=== PATIENT | female | born 1950 | race Caucasian/White ===

== ENCOUNTER 2017-03-21 19:26 | Inpatient (IN) | payer OTHER ==
[~2017-03-21] VITALS: Ht 172.7 cm; Wt 79.4 kg
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
[2017-03-21 20:59] LABS: ABSOLUTE BASOPHIL COUNT 0.1 /CUMM (0.0-0.2); ABSOLUTE EOSINOPHIL COUNT 0.1 /CUMM (0.0-0.7); ABSOLUTE GRANULOCYTE CT 6.7 /CUMM (1.4-6.5); ABSOLUTE LYMPH COUNT 1.5 /CUMM (1.2-3.4); ABSOLUTE MONOCYTE COUNT 0.5 /CUMM (0.10-0.60); BASOPHIL % 0.6 % (0.0-2.0); EOSINOPHIL % 1.2 % (0-5); GRANULOCYTE % 75.8 % (42.2-75.2); HEMATOCRIT 44.6 % (37-47); MEAN CORPUSCULAR HGB 33.6 PG (27.0-31.0); MEAN CORPUSCULAR HGB CONC 34.2 G/DL (33.0-37.0); MEAN CORPUSCULAR VOLUME 98.3 FL (81.0-99.0); MEAN PLATELET VOLUME 9.5 FL (7.4-10.4); PLATELET COUNT 177 /CUMM (130-400); RBC DISTRIBUTION WIDTH 13.5 % (11.5-14.5); RED BLOOD CELL CT 4.53 /CUMM (4.20-5.40); WHITE BLOOD CELL COUNT 8.9 /CUMM (4.8-10.8)
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
--- NOTE | 2017-03-21 21:01 | RADIOLOGY REPORT ---
EXAMINATION: XR HUMERUS, RIGHT CLINICAL INFORMATION: Fall. Humerus pain and swelling. Humerus fracture COMPARISON: Baseball Scout radiograph from the earlier CT of the head and cervical spine TECHNIQUE: AP and lateral views of the right humerus. FINDINGS: There is a comminuted multi part right proximal humeral fracture. The proximal extent extends to the humeral neck. There is one shaft's width anterior displacement and approximately 45 degree apex medial angulation. The right humeral head remains normally positioned with respect to the glenoid. The right elbow is grossly intact. IMPRESSION: Comminuted right proximal humeral shaft fracture with one shaft's width anterior displacement and approximately 45 degree apex medial angulation.
[2017-03-21 21:11] LABS: PT 11.8 SEC (9.4-12.5); PTT 30 SEC (25-37)
--- NOTE | 2017-03-21 22:20 | CT SCAN REPORT ---
EXAMINATION: CT UPPER EXTREMITY WITHOUT CONTRAST, right upper arm CLINICAL INFORMATION: Fracture of the right humerus. COMPARISON: Plain film exam right humerus today TECHNIQUE: Axial images obtained through the right humerus. Coronal and sagittal reformatted images are performed at the CT scanner. DLP: 982.33 mGy-cm FINDINGS: There is an oblique fracture of the proximal shaft of the humerus. Fracture is angulated with displacement medially. The fracture extends proximally into the surgical neck of the humerus and involves the base of the greater tuberosity with comminution. No bone destruction. No evidence for pathologic fracture. Humeral head remains normally articulated with the glenoid. No fracture of the scapula. There is small air droplets in the soft tissues adjacent to the humeral fracture laterally. It does not appear to the interruption of the skin but some edema does extend to the subcutaneous tissue at the superior lateral margin. Correlate with clinical findings. IMPRESSION: Comminuted angulated and displaced fracture the proximal humerus. Fracture involves the proximal diaphyseal shaft that does extend into the base of the greater tuberosity through the surgical neck of the humerus.
--- NOTE | 2017-03-21 23:00 | History & Physical Pre-Op ---
Karey Norwood 03/21/17 8499: General Information and HPI MD Statement: I have seen and personally examined ANTHONY REEDER and documented this H&P. The patient is a 67 year old F who presented with a patient stated chief complaint of R shoulder pain after a fall in her kitchen. Source of Information: patient Exam Limitations: intoxication History of Present Illness: Pt is a 67 yo F with no known medical problems who presented to the [place] ED with complaints of right shoulder pain after a fall in her kitchen. She states that she was drinking at home and fell onto her refrigerator. She noted an immediate deformity with significant assoicated pain. She recalls the entire event and denies loss of consciousness. Her was home with her at the time of brought her to the ED for evaluation. Upon arrival, and obvious deformity of the R shoulder/humeral head was noted and subsequent workup revealed an open, comminuted proximal humerus fracture with significant angulation. At this time, she c/o pain with movement, and numbness of the R distal arm/hand. +headache. Otherwise denies dizziness, chest pain, shortness of breath, abdominal pain, nausea, vomiting, pain in other extremities. Allergies/Medications Allergies: Coded Allergies: No Known Allergies (03/21/17) Past History Medical History Musculoskeletal: hx ankle fracture Surgical History Pertinent Surgical History: hx ankle ORIF Past Family/Social History Psychosocial History Where Do You Live? Home Who Do You Live With? 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 Pt admits to drinking about 2 glasses of wine per night with an occassional martini. On some occassions, she has more than 4 drinks. She denies history of withdrawal in the past. Negative for dizziness, chest pain, shortness of breath, abdominal pain, nausea, vomiting, pain and other extremities. Exam & Diagnostic Data Last 24 Hrs of Vital Signs/I&O Vital Signs Date Time Temp Pulse Resp B/P B/P Pulse O2 O2 Flow FiO2 Mean Ox Delivery Rate 03/21 1930 98.1 82 18 169/97 95 Room Air Intake & Output 03/22 0800 03/22 0000 03/21 1600 Intake Total Output Total Balance Patient 155 lb Weight Weight Reported by Patient Measurement Method Physical Exam: Gen.: Patient is awake and alert. She appears occasionally agitated, likely somewhat intoxicated, as indicated by rigid, abrupt movements. She is oriented to person, place, time, and situation. She is cooperative and verbalizes well. Cardiac: Regular Pulmonary: Lungs are clear bilaterally. Extremities: There is significant anterior angulation noted in the area of the right proximal humerus, with surrounding ecchymosis and swelling. Posterior splint and Jamison wrap are in place, limiting exam, however patient's hand is warm. She has numbness of her thumb and the tips of her fingers, with impaired wrist extension noted. Assessment/Plan Assessment/Plan: Patient is a 67-year-old female with a history of daily alcohol use, who sustained an open proximal humerus fracture. Plan: -Admit to Dr. Peralta service for surgical intervention, planned for tomorrow around noon. -Nothing by mouth after midnight with IV fluids. -Pain control with IV acetaminophen every 6 hours as needed. Patient is adamantly refusing narcotics. -Q4h neuro checks. -Medical consult requested for clearance. -CIWA protocol with Ativan coverage for signs of alcohol withdrawal. -F/u EKG and add on Hgb A1C as per medicince recommendations. As Ranked By This Provider Problem List: 1. Humeral shaft fracture Fabian MEI,Riddhi 03/22/17 1010: General Information and HPI Allergies/Medications Home Med list No Known Home Medications Attending MD Review Statement Attending Statement Attending MD Statement: examined this patient, discuss w/resident/PA/COMMERCIAL ART INSTRUCTOR, agreed w/resident/PA/COMMERCIAL ART INSTRUCTOR, discussed with family, reviewed images Attending Assessment/Plan: Patient evaluated in the ED; open right segmental proximal humerus fracture. Small medial puncture wound, likely inside out, no active bleeding at this time. Pain is controlled. On exam, diffuse sweeling and ecchymosis of right upper arm. Denies shoulder pain. Unable to extend thumb or wrist. Intact flexion of long, ring, and small fingers but difficulty with flexion of index finger. Intact flexion of thumb. No pain with passive motion of fingers Decrease sensation to light touch over dorsal hand and fingers; intact over ulnar hand and palm. Palpable radial pulse. A/P: 67yo RHD female with right open right segmental proximal humerus fracture. Plan for I&D and ORIF of fracture as soon as possible; waiting on instrumentation at this time. Discussed radial nerve injury; will explore radial nerve at time of surgery. Stretch or contusion may occur in humeral fracture, and discussed with patient that nerve may take several months to heal. NPO after midnight, IV fluids Pain control Continue IV abx for open fracture To OR in AM for I&D and stabilization of fracture
--- NOTE | 2017-03-22 00:46 | PN- Orthopedic ---
Surgical Brief Attending Note Brief Attending Note: Brief Note - please see full H&P by Juana Wells PA-C. Mrs. Cedeño was seen and examined in the Emergency Dept. Singh at bedside. She had a mechanical fall at home, hitting her right shoulder against the refrigerator. Consumption of EtOH this evening. Imaging shows a segmental proximal humerus fracture; per ED providers, concern for open fracture. On evaluation, patient is sitting comfortably in bed. Right arm in sling and resting on a pillow. Small wound over medial upper arm, no actively bleeding but blood-soaked gauze surrounding arm. Given xray findings and location of small wound, this is likely an inside-out open fracture and will be treated as such. No gross contamination. She received ancef in the ED and abx treatment will continue. Patient also noted to have a radial nerve palsy. Unable to extend her wrist or thumb; decreased sensation over the dorsal hand. Intact sensation over volar hand, forearm, and upper arm. 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 Strong palpable radial pulse. Plan for I&D of open wound and stabilization of fracture as soon as possible. Given radial nerve palsy and open fracture, will plan for ORIF of segmental humerus fracture with exploration of the radial nerve. Appreciate Medicine consultation for optimization prior to OR. NPO after midnight Pain control. NWB RUE in sling and splint. To OR tomorrow for I&D and ORIF of right Grade I open segemental proximal humerus fracture.
--- NOTE | 2017-03-22 03:36 | Cons- Medical ---
Jen Flores 03/22/17 0320: General Information and HPI Consulting Request Date of Consult: 03/22/17 Requested By: Riddhi Peralta MD Reason for Consult: Medical management/clearance before the surgery Source of Information: patient Exam Limitations: no limitations History of Present Illness: Patient is a 67-year-old female with no significant past medical history except for alcohol dependence presented to the ED through ambulance after sustaining a mechanical fall . Patient mentioned that she lost her balance and fellthe floor in the kitchen. Denied any lightheadedness and dizziness loss of consciousness before and after the fall. The entire event was witnessed by her . After the fall she noticed immediate deformity with significant associated pain and was brought in to the ER for further assessment. Upon arrival in the ED patient was noted to have obvious right shoulder/vertigo had developed deformity, x-ray of the right upper extremity revealed comminuted proximal humeral fracture with significant angulation. Patient denied any chest discomfort or breathing palpitations at the time of evaluation ,denied any recent hospitalization fever or infections denies any nausea vomiting abdominal discomfort and urinary bowel habit complaints. As mentioned above, patient drinks on a daily basis at least 2 glasses of red wine, once in a while drink more than 4 glasses of wine. Denied any history of alcohol intoxication/withdrawal denied any alcohol related seizures in the past. Does no smoke does not use any illicit drug . Allergies/Medications Allergies: Coded Allergies: No Known Allergies (03/21/17) Review of Systems Review of Systems Constitutional: Denies: diaphoresis, fever, malaise. EENTM: Denies: double vision, eye pain, eye drainage. Cardiovascular: Denies: edema, orthopena, palpitations. Respiratory: Denies: cough, hemoptysis, short of breath. GI: Denies: bloating, constipation, distention. Genitourinary: Denies: dysuria, frequency. Musculoskeletal: Denies: gout, joint pain, joint swelling. Skin: Denies: change in skin color, change in hair/nails. Neurological/Psychological: Denies: ataxia. Past History Travel History Traveled to [place] past 21 day No Medical History Musculoskeletal: hx ankle fracture Surgical History Surgical History: hx ankle ORIF Psychosocial History Where Do You Live? Home Who Do You Live With? 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 Respiratory: normal breath sounds, chest non-tender Last 24 Hrs of Labs/Jacob: Laboratory Tests 03/21/178: Anion Gap 13, Estimated GFR > 60, BUN/Creatinine Ratio 21.7, Glucose 164 H, Hemoglobin A1c Pending, Calcium 9.1, Total Bilirubin 0.4, AST 51 H, ALT 71 H, Alkaline Phosphatase 72, Total Protein 6.7, Albumin 4.1, Globulin 2.6, Albumin/ Globulin Ratio 1.6, Serum Alcohol 187.0 03/21/172044: CBC w Diff NO MAN DIFF REQ, RBC 4.53, MCV 98.3, MCH 33.6 H, RDW 13.5, MPV 9.5, Gran % 75.8 H, Lymphocytes % 16.5 L, Monocytes % 5.9, Eosinophils % 1.2, Basophils % 0.6, Absolute Granulocytes 6.7 H, Absolute Lymphocytes 1.5, Absolute Monocytes 0.5, Absolute Eosinophils 0.1, Absolute Basophils 0.1, PUBS MCHC 34.2 03/21/171999: PT 11.8, INR 1.13, APTT 30 Assessment/Plan Assessment/Plan Patient is a 67-year-old female with no significant past medical history except for alcohol dependence presented to the ED through ambulance after sustaining a mechanical fall. Upon arrival in the ED patient was noted to have obvious right shoulder/vertigo had developed deformity, x-ray of the right upper extremity revealed comminuted proximal humeral fracture with significant angulation. Pertinent labs no evidence of leukocytosis H&H stable, transaminitis AST 50 once ALT 71 normal coags, U tox positive for alcohol 187. X-ray of the right upper extremity showed : Comminuted right proximal humeral shaft fracture with one shaft's width anterior displacement and approximately 45 degree apex medial angulation. We have been consulted for co- medical management or with problems. Comminuted right proximal humeral shaft fracture with significan angulation status post mechanical fall Alcohol dependence Transaminitis(likely alcohol related) Plan: Comminuted right proximal humeral shaft fracture with significan angulation status post mechanical fall * Admit the patient to the [facility] floor * Patient has been evaluated by surgical team. * Continue management as per surgery. * Bowel regimen. * Neurochecks. * RCRI index is v low(0.9% risk of any cardiac event), will do preop EKG and chest x-ray before the surgery, if patient remains stable without any significant EKG and chest x-ray findings, patient is medically cleared for surgery. * Due to significant alcohol dependence, maintain her on CIWA protocol with as needed Ativan to prevent any withdrawal/seizures. * Check hemoglobin A1c(to rule out any underlying diabetes mellitus) Alcohol dependence * Due to significant alcohol dependence, maintain her on CIWA protocol with as needed Ativan to prevent any withdrawal/seizures. Transaminitis(likely alcohol related) * Trended LFTs Consult Acknowledgment - Thank you for your consult request. DelaneyHampriti 03/22/17 0642: Assessment/Plan Consult Acknowledgment - Thank you for your consult request. Attending MD Review Statement Attending Statement Attending MD Statement: examined this patient, discuss w/resident/PA/CREDIT COMPLIANCE OFFICER, agreed w/resident/PA/CREDIT COMPLIANCE OFFICER, reviewed EMR data (avail), reviewed images, amended to note Attending Assessment/Plan: CC: Medical consult for surgical clearance PMH: None Patient came to ER after a fall in her kitchen, she was drinking something at home and fell into a refrigerator, immediately a deformity was noted with severe pain in right upper extremity, she was rushed to ER. Other than the pain in right arm ration denies any other complaints. She did not loose consciousness, no head strike, no seizure-like activity. Currently denies any chest pain, palpitations. Patient is very active, asymptomatic for chest pain or dyspnea on exertion with one-mile walk. No significant coronary artery disease, no significant history of strokes. Vitals, complete physical examination unremarkable except right upper extremity is in the sling and slab and radial nerve palsy, decreased sensation over the dorsum of the hand. CBC, BMP, unremarkable, mild transaminitis 51/, alcohol 187. No old or new ECG changes, ? Q wave only in lead 3. Given her no significant past medical history, not on medication she has low RCRI risk for any major cardiac mortality 0.4%. Low risk for surgery. Appreciate consult. Watch for alcohol withdrawal, repeat LFTs in a.m.
[2017-03-22 07:45] VITALS: BP 180/100
--- NOTE | 2017-03-22 10:24 | PN- Orthopedic ---
Surgical Brief Attending Note Brief Attending Note: Patient seen and examined this morning. Remains in Emergency Dept. Uncomfortable and sore, requests removal of posterior splint due to discomfort. Now has tingling in the dorsal fingers and some motion fo the thumb. Exam: Right Upper Extremity No active bleeding from small medial upper arm wound Diffuse ecchymosis and swelling of right upper arm Intact thumb, long, ring, and small finger flexion; decreased flexion of index finger Unable to fully extend thumb but improved from yesterday. Able to slightly extend fingers, improved from yesterday. Bounding right radial pulse, hand warm and well-perfused. A/P: 67yo RHD female with right segmental proximal humerus fracture and radial nerve injury; small open wound over medial upper arm. Plan for I&D and ORIF of fracture today. Appreciate Medicine consult and their recommendations. CAT KHALIL NPO Pain control IV fluids To OR today
[2017-03-22 10:30] VITALS: BP 210/120
[2017-03-22 11:30] VITALS: BP 220/110
[2017-03-22 13:30] VITALS: BP 180/110
--- NOTE | 2017-03-22 18:36 | PN- Att Addend ---
Attending Addendum Attending Brief Note S: The patient was seen pre-operatively again for elevated BP readings (max 220/ 110-210/120). She has no h/o HTN, however has not seen an MD in many years. She does endorse pain due to her fracture, however declines narcotics. O: VS: Vital Signs Date Time Temp Pulse Resp B/P B/P Pulse O2 O2 Flow FiO2 Mean Ox Delivery Rate 03/22 1425 160/110 03/22 1406 99.1 84 20 170/110 03/22 1355 84 20 170/110 98 Room Air 03/22 1330 99.1 74 20 180/110 03/22 1327 99.1 74 20 180/110 97 Room Air 03/22 1244 74 20 200/110 98 Room Air 03/22 1227 200/110 03/22 1205 98.1 91 20 220/110 03/22 1130 98.1 91 20 220/110 03/22 1130 98.1 91 20 220/110 98 Room Air 03/22 1030 98.0 96 20 210/120 03/22 1030 98.0 96 20 210/120 97 Room Air 03/22 0745 98.7 97 20 180/100 03/22 0745 98.7 97 20 180/100 97 Room Air 03/22 0129 98.4 81 18 148/73 98 Room Air 03/21 1930 98.1 82 18 169/97 95 Room Air Intake & Output 03/22 1600 03/22 0800 03/22 0000 Intake Total Output Total Balance Patient 155 lb Weight Weight Reported by Patient Measurement Method Current Medications Sig/Bert Start time Last Medication Dose Route Stop Time Status Admin Acetaminophen 0 .STK-MED ONE 03/22 121 DC IV Acetaminophen 1,000 MG Q6P PRN 03/22 06 AC 03/22 N/A 1 UNIT IV 1210 Acetaminophen 0 .STK-MED ONE 03/22 0500 DC IV Acetaminophen 0 .STK-MED ONE 03/21 2255 DC IV Acetaminophen 1,000 MG ONCE ONE 03/21 194 DC 03/21 N/A 1 UNIT IV 03/21 1958 2315 Cefazolin Sodium 0 .STK-MED ONE 03/22 1210 DC .ROUTE Cefazolin Sodium 1,000 MG Q8H 03/22 0500 AC 03/22 IV 1210 Cefazolin Sodium 0 .STK-MED ONE 03/22 0500 DC .ROUTE Cefazolin Sodium 0 .STK-MED ONE 03/21 2304 DC .ROUTE Cefazolin Sodium 1,000 MG ONCE ONE 03/21 2100 DC 03/21 IV 03/21 210 2315 Heparin Sodium 0 .STK-MED ONE 03/22 1412 DC (Porcine) .ROUTE Heparin Sodium 5,000 UNIT Q8 03/22 0600 AC 03/22 (Porcine) SC 1407 Hydralazine HCl 0 .STK-MED ONE 03/22 1405 DC .ROUTE Hydralazine HCl 10 MG ONCE ONE 03/22 1400 DC 03/22 IV 03/22 1401 1406 Labetalol HCl 0 .STK-MED ONE 03/22 1204 DC IV Labetalol HCl 10 MG ONCE ONE 03/22 1200 DC 03/22 IV 03/22 1201 1205 Lorazepam 0 .STK-MED ONE 03/22 1250 DC .ROUTE Lorazepam 0.5 MG ONCE ONE 03/22 1200 DC 03/22 IV 03/22 1201 1248 Lorazepam 0 Q1P PRN 03/22 0045 AC IV Morphine Sulfate 0 .STK-MED ONE 03/21 2254 DC .ROUTE Morphine Sulfate 4 MG ONCE ONE 03/21 2200 DC IV 03/21 2201 Sodium Chloride 1,000 ML Q8H 03/22 0100 AC 03/22 IV 1210 Tetanus/Diphtheria 0 .STK-MED ONE 03/21 2304 DC Toxoids Adsorbed IM Tetanus/Diphtheria 0.5 ML ONCE ONE 03/21 2100 DC 03/21 Toxoids Adsorbed IM 03/21 2100 2315 Chest: clear Cor: RRR nl S1, S2 w/o murm Abd: BS+, soft, NT Ext: LE w/o edema, pulses 2+, RUE fx as documented Labs: EKG- neg Laboratory Tests 03/22/17 1351: Total Bilirubin 0.9, Direct Bilirubin 0.3, AST 44 H, ALT 70 H, Alkaline Phosphatase 61, Total Protein 6.6, Albumin 3.9 03/21/17 2318: Anion Gap 13, Estimated GFR > 60, BUN/Creatinine Ratio 21.7, Glucose 164 H, Hemoglobin A1c Pending, Calcium 9.1, Total Bilirubin 0.4, AST 51 H, ALT 71 H, Alkaline Phosphatase 72, Total Protein 6.7, Albumin 4.1, Globulin 2.6, Albumin/ Globulin Ratio 1.6, Serum Alcohol 187.0 03/21/172044: CBC w Diff NO MAN DIFF REQ, RBC 4.53, MCV 98.3, MCH 33.6 H, RDW 13.5, MPV 9.5, Gran % 75.8 H, Lymphocytes % 16.5 L, Monocytes % 5.9, Eosinophils % 1.2, Basophils % 0.6, Absolute Granulocytes 6.7 H, Absolute Lymphocytes 1.5, Absolute Monocytes 0.5, Absolute Eosinophils 0.1, Absolute Basophils 0.1, PUBS MCHC 34.2 03/21/171999: PT 11.8, INR 1.13, APTT 30 Impression/Plan: #HTN- BP elevation is most likely multifactorial (?may have underlying HTN, NS hydration, pain, anxiety, ?withdrawal from EtOH). BP decreased post some Ativan, Labetalol, and Hydralazine. Plan: OK for urgent surgery as noted previously. Will follow BP closely post operatively and decide upon further medication. Once taking po consider Amlodipine. #Alcohol Dependence- ? some degree of withdrawal. No h/o withdrawal in past as per patient and family. Had elevated blood alcohol level on presentation. Plan: Will continue CIWA and use Ativan/MVI/thiamine/folate, etc. #Comminuted Fx Right Humeral Shaft/Nerve Compression- needs urgent intervention. Plan: As per orthopedics- to OR.
--- NOTE | 2017-03-22 20:11 | Operative Report ---
Operative/Inv Procedure Report Surgery Date: 03/22/17 Name of Procedure: Right segmental humerus ORIF I&D of right upper arm open fracture Exploration of right radial nerve Pre-Operative Diagnosis: Grade I open right segmental humerus fracture Radial nerve palsy Post-Operative Diagnosis: Grade I open right segmental humerus fracture Radial nerve palsy Estimated Blood Loss: 300mL Surgeon/Prepared Foods Supervisor: Fabian MEI,Riddhi Cazares MD, SADIA Anesthesia: general endotracheal tube Implants: Styker Proximal Lateral Humerus Plate - 10 hole (176mm) 3.5mm cortical screws 4.0mm locking screws Drains: None Specimens: None Microbiology: None Tourniquet: N/A Complications: None Condition: Stable Operative/Procedure Note Note: INDICATION FOR PROCEDURE: Samantha Cedeño is 67 year-old female who presented to the Emergency Department at [facility] with right arm pain. She had consumed alcohol earlier that evening and stumbled in her kitchen, striking her right shoulder against her refrigerator. X-rays showed a segmental proximal humerus frature, and she had a small medial wound consistent with open fracture. On examination, she was also found to have a radial nerve palsy. She was given cefazolin for the open fracture in the Emergency Department. She was evaluated by the Medicine service for pre-operative medical optimization, then taken to the operating room for irrigation and debridement of the open wound, stabilization of her fracture, and exploration of the radial nerve. OPERATIVE REPORT: Mrs. Cedeño was brought to the OR on 03/22/17. She was met in the pre-operative area, where her consent was reviewed and her operative extremity was marked. She was taken into the operating room and placed supine on the OR table. A time -out was performed in which the patient, the operative extremity, and the planned procedure were verified. SCDs were applied to bilateral lower extremities. The patient was induced under general anesthesia and caitlyn-operative cefazolin was administered. She was then placed in a 30 degree modified beach chair position; care was taken to pad all bony prominences and support the head in a neutral position. A bump was placed under the scapula. The right arm was then cleaned with alcohol; some bleeding was noted from two small wounds in the medial upper arm. Fluoroscopy was used to verify the position of the fractures and x-rays accessbility prior to prepping and draping of the arm. Following a surgical pause, an incision was made for the deltopectoral approach and extended distally over the anterolateral upper arm. Proximally, the deltoid and pectorialis major interval was opened, and the cephalic vein mobilized laterally. The conjoint tendon and long head of the biceps tendon were identified, as was the fracture of the surgical neck of the humerus. The pectoralis major tendon insertion was left intact. Laterally, a large spike of bone of the segmental fracture was noted with the deltoid insertion intact. The dissection was carried distally, where signficiant soft tissue trauma was noted over the biceps and brachioradialis interval. The biceps muscle belly was intact and retracted medial. The anterior brachioradialis muscle was damaged, and the fascia overlying the muscles was also torn and damaged, resulting in a large anterior defect. The diaphyseal spiral fracture was exposed; the open fracture appeared to be due to the large segmental spike and/or the distal medial spike of bone. An incision was made to extend the two small puncture wounds of the open fracture. A rent was appreciated in the deeper soft tissues, which extended laterally. The wound was carefully explored with no evidence of gross contamination. A blunt snap was placed in the open wound to maintain the space. A total of 6L of normal saline with bacitracin was irrigated throughout the fracture sites. The fluid was periodically stopped and manual debridement of the sharp ends performed. Fluid was allowed to run though the open wound from inside out. Following irrigation and debridement of the fracture site, a 10-hole proximal humerus plate was selected. The surgical neck fracture was reduced and the plate pinned to the lateral humeral head. The plate sat over the anterolateral humerusand was passed under the deltoid insertion. There were comminuted fragments of bony involving the posterior humerus; these large fragments prevented a perfect reduction without extensive dissection. The segmental piece was pinned to the plate and fluoroscopy used to verify the reduction and position of the plate. The distal aspect of the segmental fracture was then reduced and the plate clamped to the distal humeral shaft. Once again fluoro was used to verify the reduction. After minor adjustments were made, locking screws were placed in the humeral head and cortical screws placed in the shaft to bridge the fracture. The K-wires and clamps were removed and fluoro used to again verify the reduction and bridging. The segmental fragment was not perfectly keyed in, but the overall length and alignment was appropriate. Additional fixation was obtained proximally and distally. The radial nerve was carefully dissected over the lateral aspect of the humerus, where it ran from posterior to anterior. The nerve was in good condition distal to the segmental fracture and did not cross the plate. It's proximal to distal course was verified and was not trapped in tissue near the plate. We did not dissect the nerve posterior to the humerus due to morbidity and access from the anterolateral approach, and therefore were unable to verify the integrity of the nerve proximally. At the conclusion of the procedure, final fluoroscopic images were obtained to verify the fracture reduction and the position of the plate. The wound was then copiously irrigated with normal saline. Hemostasis was obtained and no additional drainage was required. The incision was closed in layers using 0 vicry and 2-0 vicryl, followed by interrupated Nylon for skin. The medial wound was closed with 0 vicryl and 3-0 nylon. The incisions were dressed with xeroform, gauze, ABD pads, and secured with webril. The proximal dressings were secured with foam tape and the arm was wrapped with an FRANCESCA bandage from axilla to hand. She was placed in a simple sling. The patient was then extubated and taken from the OR to the recovery room in stable condition.
--- NOTE | 2017-03-22 22:04 | PN- Orthopedic ---
Subjective Subjective: Post op check Awake, alert No complaints at this time Denies any pain - state she has a high pain tolerance Denies nausea, tolerating liquids Objective Vital Signs and I&Os Vital Signs Date Time Temp Pulse Resp B/P B/P Pulse O2 O2 Flow FiO2 Mean Ox Delivery Rate 03/22 2037 Nasal 1.5L Cannula 03/22 1425 160/110 03/22 1406 99.1 84 20 170/110 03/22 1355 84 20 170/110 98 Room Air 03/22 1330 99.1 74 20 180/110 03/22 1327 99.1 74 20 180/110 97 Room Air 03/22 1244 74 20 200/110 98 Room Air 03/22 1227 200/110 03/22 1205 98.1 91 20 220/110 03/22 1130 98.1 91 20 220/110 03/22 1130 98.1 91 20 220/110 98 Room Air 03/22 1030 98.0 96 20 210/120 03/22 1030 98.0 96 20 210/120 97 Room Air 03/22 0745 98.7 97 20 180/100 03/22 0745 98.7 97 20 180/100 97 Room Air 03/22 0129 98.4 81 18 148/73 98 Room Air Intake & Output 03/22 1600 03/22 0800 03/22 0000 03/21 1600 03/21 0800 03/21 0000 Intake Total Output Total Balance Patient 155 lb Weight Weight Reported by Patient Measurement Method Physical Exam: VSS General: alert and oriented times three Chest: clear anteriorly bilaterally, RRR Abd: soft, good bs Ext RUE wrapped in FRANCESCA and dressing at the prox humerus - dressings are all dry Fingers are exposed, warm, good cap refill, normosensate flexion/extension of fingers 3/5 Assessment/Plan Assessment/Plan 67yo female with right segmental proximal humerus fracture and radial nerve injury s/p Right segmental humerus ORIF I&D of right upper arm open fracture Exploration of right radial nerve Pain mgmt post op with IV tylenol scheduled for 24hrs and PROCEDURES TECH dilaudid dvt ppx with 325mg asa po bid and ALPS RUE will be non weight bearing and kept in a sling - splint will be brought by Dr Peralta tomorrow Monitor bp as it was high pre-op Core Measures Venous Thromboembolism VTE Risk Factors Surgery No Mechanical VTE Prophylaxis d/t N/A MechProphylax Ordered No VTE Pharm Prophylaxis d/t NA PharmProphylax ordered
[2017-03-22 22:10] VITALS: BP 140/84
[2017-03-22 23:00] VITALS: BP 140/84
--- NOTE | 2017-03-22 23:32 | RADIOLOGY REPORT ---
EXAMINATION: XR HUMERUS, RIGHT CLINICAL INFORMATION: Right humerus ORIF COMPARISON: 03/21/2017 TECHNIQUE: 11 intraoperative fluoroscopic images of the right humerus. 2 views. Total fluoroscopic time 50.3 seconds. FINDINGS: The comminuted proximal humeral fracture is seen on the initial image. There is plate and screw fixation hardware placed across the comminuted fracture with near-anatomic alignment of the fracture fragments. The humeral head articulates appropriately with the glenoid. IMPRESSION: Fluoroscopic guidance internal fixation of the comminuted proximal right humeral fracture with near-anatomic alignment.
[2017-03-23] VITALS (12 sets, daily range): BP systolic 128–142; BP diastolic 70–80
--- NOTE | 2017-03-23 07:19 | PN- Student ---
Christ Marshall 03/23/17 0709: Subjective Subjective: Samantha is a 67yo female day 1 post op right humerus reduction/fracture repair s/p open segemental humerus fracture. She states her pain is a 5/10 dull throbbing pain. She states she has had mild nausea and a dry cough since the procedure but has no other complaints. Denies H/A, vision changes, SOB, chest pain, abd pain, N/V/D or syncope. Because of hx of alcohol misuse patient was assessed for alcohol withdrawal. She states she feels 'shaky' but denies any visual/auditory/sensory hallucinations at this time. Objective Objective: GENERAL: PT lying comfortably in bed in no acute distress. PT has pleasant/ slightly anxious affect. A+Ox4. RESP: Good respiratory effort, CTAB. CARDIO: RRR, no M/R/G, S1 and S2 audible throughout ABD: Soft, nontender, nondistended, tympanic upon percussion. Normoactive bowel sounds audible in all 4 quadrants MUSC: Right arm is in jabier bandage with dressing underneath starting at the right shoulder extending to the right hand. Sling is in place, however patients arm is 80% extended for comfort. 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 Patient has limited movement in the right wrist/metacarpals and is unable to flex right wrist completely. cap refill <2 seconds. Hand is warm, dry and shows no signs of swelling. NEURO: Sensation intact throughout bilaterally. Assessment/Plan Assessment: Samantha is a 67 yo female post op day 1 recovering very well from right humeral reduction 2/2 open fracture. She has a high pain tolerance and states she feels like her ROM and strength of her right hand has been improving since her injury. She would like to leave tomorrow as she says 'my is not ready for me to come home today.' No other complaints at this time. Plan: Continue pain medication as ordered. Regular diet. Neuro evaluation of REMI bhandari to note any improvement or decline Fabiana Burroughs 03/23/17 0901: Subjective Subjective: minimal pain at rest. karli reg diet. feels that she can move her hand more this am, though looks more swollen to her. denies pareathesias. denies withdrawal symptoms. Objective Objective: GEN: NAD CARD: s1s2 RRR PULM: CTAB EXT: RUE:jabier and sling in place, dressing dry, ttp at shoulder/upper arm, palp radial pulse, hand/fingers w edema, gross sensation intact, can move fingers but limited extension/flexion. calves soft nt bl Results Results: Laboratory Tests Assessment/Plan Plan: AP: POD1 sp ORIF R open humerous fx, radial nerve exploration, with r wrist drop , curtrently stable with good pain control, using dilaudid ppca infrquently. -dc change room attendant, try po pain meds - DVT ppx: ASA 325BID, ALPS - OT eval/tx. sling to RUE. splint to be brought by MD today - HL - CIWA, prn ativan - reg diet as tolerated - Dc planning- possibly today if pain controlled with po meds - will shanna attending
[2017-03-23 10:41] LABS: ABSOLUTE BASOPHIL COUNT 0 /CUMM (0.0-0.2); ABSOLUTE EOSINOPHIL COUNT 0 /CUMM (0.0-0.7); ABSOLUTE GRANULOCYTE CT 7.4 /CUMM (1.4-6.5); ABSOLUTE LYMPH COUNT 1.4 /CUMM (1.2-3.4); ABSOLUTE MONOCYTE COUNT 0.8 /CUMM (0.10-0.60); WHITE BLOOD CELL COUNT 9.6 /CUMM (4.8-10.8)
[2017-03-23 11:32] LABS: BASOPHIL % 0.3 % (0.0-2.0); EOSINOPHIL % 0.1 % (0-5); GRANULOCYTE % 77.3 % (42.2-75.2); MEAN CORPUSCULAR HGB CONC 34.5 G/DL (33.0-37.0); MEAN CORPUSCULAR VOLUME 98.8 FL (81.0-99.0); MEAN PLATELET VOLUME 9.8 FL (7.4-10.4); PLATELET COUNT 163 /CUMM (130-400); RBC DISTRIBUTION WIDTH 14.2 % (11.5-14.5); RED BLOOD CELL CT 3.58 /CUMM (4.20-5.40)
[2017-03-23 11:41] LABS: HEMATOCRIT 35.3 % (37-47)
--- NOTE | 2017-03-23 11:48 | PN- Medicine Consult ---
Janusz MEI,Komal 03/23/17 1148: Assessment/Plan Assessment/Plan Assessment: ASSESSMENT: This is a 67 yo female with no known PMH as she has limited healthcare exposure, who comes in with CC of fall and r. arm fracture. Per orthopedics she came in with Grade I open segemental proximal humerus fracture with evidence of radial nerve palsy. She went for I&D and ORIF of right humerus fracture. Pre-operatively she was found to be hypertensive with elevated blood alcohol level. Medicine consulted for pre-op management and subsequent management of co-morbid medical conditions. This is POD 1. PLAN: 1. HTN: Today bp well under control. She has been in the pre-hypertensive range (128/4-134/80). Yesterday she had BP max 220/110, part of which was thought to be attributed to pain. She recieved IV Labetalol and Hydralazine which resolved htn. She has since been without pharmacologic mgmt of BP. Her pain is under better control with dilaudid AMBULANCE ATTENDANT. * Con't monitor * Follow up out pt 2. ETOH consumption: Pt endorses heavy hx of etoh consumption up to 4 glasses of wine/day. She has no hx of withdrawl symptoms or hospitalization. She states that she takes B12 at home as she was told "a long time ago" that she had low B12 lvl. MCV is 98 which is upper limit of nml. CIWA scores :0, 0, 0, 0, 0. * Con't CIWA protocol as peak of withdrawl is 48 hrs after last etoh consumption * Kindly start Thiamine, multivite and folate. Would encourage at d/c as well. * Out patient follow up 3. Transamanitis: Pt has low grade transamanitis with no obvious source other than etoh. * Counseled d/c etoh * Consider RUQ US on outpt basis * Out pt follow up 4. Right Grade I open segemental proximal humerus fracture: * Abx per surgery * DVT ppx per surgery * wound care per surgery full code Reg diet Plan: see above Subjective Subjective: Saw pt at bedside this AM. She had surgery last night. No post-op complications. She states that she still has some numbness and tingling in her fingers but her mobility is much improved. She is eating well and has resumed normal bowel and bladder habits. Review of Systems Constitutional: Reports: no symptoms. EENTM: Denies: double vision, visual changes. Cardiovascular: Denies: chest pain, palpitations. Respiratory: Denies: cough, short of breath. Gastrointestinal: Denies: abdominal pain, diarrhea, nausea, vomiting. Genitourinary: Reports: no symptoms. Musculoskeletal: Reports: muscle pain, muscle stiffness. Skin: Reports: no symptoms. Objective Last 24 Hrs of Vital Signs/I&O Vital Signs Date Time Temp Pulse Resp B/P B/P Pulse O2 O2 Flow FiO2 Mean Ox Delivery Rate 03/23 0736 97.4 69 20 130/70 95 Room Air 03/23 0611 98.7 87 18 128/74 95 Nasal Cannula 03/23 0600 98.7 87 18 128/74 03/23 0600 98.7 87 18 128/74 03/23 0400 98.0 72 20 128/70 03/23 0400 98.0 72 20 128/70 03/23 0400 98.0 72 20 128/70 97 Room Air 03/23 0210 98.1 85 18 130/76 95 Room Air 03/23 0200 98.1 85 18 130/76 03/23 0200 98.1 85 18 130/76 03/23 0014 98.3 88 18 134/80 94 Room Air 03/23 0000 98.3 88 18 134/80 03/23 0000 98.3 88 18 134/80 03/23 0000 94 Nasal 2.0L Cannula 03/22 2300 98.7 78 20 140/84 03/22 2210 98.7 78 20 140/84 95 03/22 2038 Nasal 1.5L Cannula Intake & Output 03/23 1600 08 0800 03/23 0000 Intake Total 1400 1000 300 Output Total 700 Balance 700 1000 300 Intake, IV 200 600 200 Intake, Oral 1200 400 100 Output, Urine 700 Patient 79.379 kg Weight Weight Reported by Patient Measurement Method Physical Exam General Appearance: well developed/nourished, no apparent distress, alert, awake Head: atraumatic Neck: normal inspection, supple, full range of motion Cardiovascular: 2/6 systolic murmur at LUSB Respiratory: normal breath sounds, chest non-tender, lungs clear Peripheral Pulses: 4+ radial (R) Abdomen: soft, non-tender Extremities: r. arm in sling. she is able to move all digits. has some noted weakness in hand rollout manager but states that it is due to pain. Endorses some tingling isolated to her fingertips Current Medications: Current Medications Sig/Bert Start time Last Medication Dose Route Stop Time Status Admin Acetaminophen 650 MG Q6P PRN 03/23 1500 AC PO Acetaminophen 1,000 MG Q6H 03/22 2114 DC 03/23 N/A 1 UNIT IV 03/23 928 0819 Acetaminophen 1,000 MG Q6P PRN 03/22 06 DC 03/22 N/A 1 UNIT IV 1210 Aspirin 325 MG BID 03/22 2200 AC 03/23 PO 0819 Calcium Carbonate 500 MG DAILY 03/23 0430 AC 03/23 PO 0819 Cefazolin Sodium 2 GM IQ8 03/22 2300 DC 03/23 N/A 1 UNIT IV 03/23 728 0632 Cefazolin Sodium 1,000 MG Q8H 03/22 0500 DC 03/22 IV 1210 Dextrose/Sodium 1,000 ML .[id number] 03/22 2114 DC 03/22 Chloride IV 2251 Docusate Sodium 100 MG BID 03/22 2199 AC 03/23 PO 0818 Heparin Sodium 5,000 UNIT Q8 03/22 0600 DC 03/22 (Porcine) SC 1407 Hydromorphone HCl 2 MG Q4P PRN 03/23 09 DC PO Hydromorphone HCl 4 MG Q4P PRN 03/23 09 DC PO Hydromorphone HCl 50 MG Q24H PRN 03/22 2200 DC 03/22 Sodium Chloride 45 ML IV 2342 Hydromorphone HCl 1 MG SEE ADMIN CRITERIA 03/22 2114 CAN IV Hydromorphone HCl 2 MG .STK-MED ONE 03/22 1946 DC IM 03/22 194 Ibuprofen 600 MG Q6P PRN 03/23 1500 AC PO Influenza Virus 0.5 ML ONCE ONE 03/23 1000 DC 03/23 Vaccine IM 03/23 1001 0820 Lorazepam 0 Q1P PRN 03/22 2114 AC IV Lorazepam 0 Q1P PRN 03/22 0045 DC IV Omeprazole 20 MG DAILY AC 03/23 1508 AC 03/23 PO 1523 Ondansetron HCl 4 MG Q6P PRN 03/22 2114 AC IV Ramelteon 8 MG AT BEDTIME NEED.. 01/07 2115 AC PO Sodium Chloride 1,000 ML Q8H 03/22 0100 DC 03/22 IV 1210 Tramadol HCl 50 MG Q6 PRN 03/23 1500 AC 03/23 PO 1523 Results Last 24 Hrs Lab/Jacob Results: Laboratory Tests 03/23/17 0929: CBC w Diff NO MAN DIFF REQ, RBC 3.58 L, MCV 98.8, MCH 34.0 H, RDW 14.2, MPV 9.8, Gran % 77.3 H, Lymphocytes % 14.2 L, Monocytes % 8.1, Eosinophils % 0.1, Basophils % 0.3, Absolute Granulocytes 7.4 H, Absolute Lymphocytes 1.4, Absolute Monocytes 0.8 H, Absolute Eosinophils 0, Absolute Basophils 0, PUBS MCHC 34.5 Constanza MEI,Jinny 03/23/17 1352: Attending MD Review Statement Attending Sign Off Attending Cosign Statement: I have: examined this patient, reviewed [employer] EMR data, personally reviewd images, discussd w/resident/PA/AGILE JAVA DEVELOPER, discussed mgmt plan w/cristina, discussed mgmt plan w/pt. Other Findings: 67-year-old female who is status post a right humerus fracture and no injury. She status post ORIF and her arm is immobilized. Pre-operatively she had uncontrolled hypertension requiring antihypertensives but postoperatively her pressure has been stable and will follow that up closely. Will also follow-up to make sure she has no LVH on her EKG. She has a history of alcohol use and will need to watch for withdrawal closely. I think the transaminitis reflects an alcoholic hepatitis and will follow-up.
--- NOTE | 2017-03-23 18:10 | PN- Orthopedic ---
Surgical Brief Attending Note Brief Attending Note: Patient seen and examined; at bedside. She is doing well, pain controlled. Resting comfortably in bed. Did not sleep much last night but is feeling much better after surgery. Her is concerned about being able to care for her at home following discharge. Exam: RUE Dressings clean, dry, intact Unable to extend hand at wrist. Unable to extend fingers. Minimal extension of thumb. Intact flexion of wrist. Intact flexion of thumb, long, ring, and small fingers. Difficulty with index finger flexion and opposition to thumb. Sensation intact to light touch over hand and fingers; diminished over dorsal hand and finger. Intact over volar hand and ulnar hand. Palpable radial pulse A/P: 67yo RHD female POD#1 ORIF R open humerous fx and radial nerve exploration. Pre-op radial nerve palsy with wrist drop. Doing well, pain controlled. Acute blood loss anemia but stable vitals. NWB RUE in sling Pain control - tylenol, tramadol, intermittent NSAIDs ASA 325 bid and SCDs for DVT prophylaxis OT evaluation Monitor blood pressue and pain control Continue CIWA monitoring; ativan PRN gun club manager to discuss discharge options with patient and her . Plan for follow up in clinic in 10-14 days for reevaluation and suture removal.
[2017-03-24] VITALS: BP 140/70
[2017-03-24 02:00] VITALS: BP 140/70
[2017-03-24 03:13] VITALS: BP 150/90
[2017-03-24 04:00] VITALS: BP 140/70
[2017-03-24 06:00] VITALS: BP 140/88
[2017-03-24 07:09] VITALS: BP 140/88
[2017-03-24] MEDS ORDERED: TRAMADOL HCL50 M1 PO (08:00)
[2017-03-24] MEDS ORDERED: IBUPROFEN600 M1 PO (08:00)
--- NOTE | 2017-03-24 08:14 | PN- Orthopedic ---
See Addendum Subjective Subjective: pod#3 s/p orif right proximal humerus fx w/exploration of radial nerve resting comfortably no major issues overnight deneis cp, sob, no n+v with diet has been fitted with wrist splint yesterday pain well controlled Objective Vital Signs and I&Os Vital Signs Date Time Temp Pulse Resp B/P B/P Pulse O2 O2 Flow FiO2 Mean Ox Delivery Rate 03/24 07 98.2 73 20 140/88 94 Room Air 03/24 0600 98.2 73 20 140/88 03/24 0400 98.2 85 18 140/70 03/24 0313 98.7 71 20 150/90 94 Room Air 03/24 0200 98.2 85 18 140/70 03/24 0000 98.2 85 18 140/70 03/23 2236 98.2 85 18 140/70 94 Room Air 03/23 2200 98.3 86 18 142/70 03/23 2000 98.3 86 20 142/70 03/23 1530 98.3 86 20 142/70 96 Room Air Intake & Output 03/24 1600 03/24 0800 03/24 0000 03/23 1600 03/23 0800 03/23 0000 Intake Total 038 883 6360 1000 300 Output Total 700 Balance 600 857 767 7847 300 Intake, IV 200 600 200 Intake, Oral 715 478 5963 400 100 Output, Urine 700 Patient 175 lb Weight Weight Reported by Patient Measurement Method Physical Exam: cv: rrr lungs: clear abd; soft, +bs ext: arm drsg dry and intact 3/5 wrist dorsiflexion sensory intact Assessment/Plan Assessment/Plan ortho stable plan will d/w case amnagement d/c needs plan for home d/c this am Core Measures Venous Thromboembolism VTE Risk Factors Surgery No Mechanical VTE Prophylaxis d/t N/A MechProphylax Ordered No VTE Pharm Prophylaxis d/t NA PharmProphylax ordered
--- NOTE | 2017-03-24 09:56 | Discharge Summary ---
Visit Information Visit Dates Admission Date: 03/21/17 Discharge Date: 03/24/17 Hospital Course Course Attending Physician: Riddhi Peralta MD Primary Care Physician: Patient Has No Primary Care Physician Hospital Course: Mrs. Cedeño is 67-year-old right-hand dominant female who sustained a right open arm fracture after mechanical fall at home on 03/21/2017. She had two small poke-hole wounds on the medial arm consistent with inside-out open fracture. Her exam in the emergency department was also remarkable for radial nerve palsy (inability to extend the wrist or fingers, along with dorsal hand and finger paresthesias) as well as a medial nerve/AIN palsy (difficulty with thumb and index finger flexion and opposition). After emergency room evaluation and stabilization she was taken to the operating room. Mrs Cedeño underwent irrigation and debridement of the medial wound and open reduction and internal fixation of open right arm fracture. The radial nerve was exploration as it coursed from posterior to anterior along the lateral upper arm. She tolerated the procedure well and was transferred to the general medical floor post-operatively. She was continued on IV anti-biotics for 24hrs after the procedure. On post-op day #1, she has improved but persistent difficulty with wrist and finger extension and persistent difficulty with thumb and index finger flexion. The radial nerve symptoms improved, but the median/AIN symptoms persisted on POD#2 at the time of discharge. A cock-up wrist splint was ordered and placed on the right wrist. She was out of bed ambulating with occupational therapy. On post-op day#2 she was stable for discharge to home with home health services. Events of hospital stay are otherwise unremarkable. Allergies: Coded Allergies: No Known Allergies (03/21/17) Significant Procedures: I&D of right open humerus fracture Open reduction and internal fixation of right humerus fracture Exploration of right radial nerve. Disposition Summary Disposition Principal Diagnosis: Grade I open right segemental humerus fracture with radial nerve and median/AIN nerve palsy Additional Diagnosis: Acute blood loss anemia, stable. Discharge Disposition: home health services Discharge Instructions General Discharge Information Code Status: Full Code Patient's Diet: Regular diet Patient's Activity: Nonweightbearing right upper extremity Sling to right upper extremity Do not remove dressing Right wrist splint Follow-Up Instructions/Appts: Call Dr. Peralta's office for follow-up in 10-14 days for suture removal. Medications at Discharge Discharge Medications: Start taking the following new medications: Ibuprofen (Ibuprofen) 600 MG TABLET 1 Tablet ORAL EVERY SIX HOURS NEEDED as needed for any pain Qty = 60 No Refills Comments: Last Taken:03/24/17 Time:0830 Tramadol HCl (Tramadol HCl) 50 MG TABLET 1 Tablet ORAL EVERY SIX HOURS as needed for any pain Qty = 36 No Refills Comments: Last Taken:03/24/17 Time:0600 Copies To: Riddhi Peralta MD Attending MD Review Statement Documenting Attending: Riddhi Peralta MD
--- NOTE | 2017-03-24 10:49 | Patient Discharge Instructions ---
Discharge Instructions General Discharge Information You were seen/treated for: open arm fracture You had these procedures: irrigation debridement, open reduction internal fixation right arm fracture Watch for these problems: temp>101.5, increased pain, incrased wound draiange/redness Call Surgeon to remove: Stitches Other wound care: do not remove dressing per dr wren Diet Continue normal diet: Yes Recommended Diet: Regular Activity Activity Limited to: No weight bearing Other activity limits: no weight bearing right arm , sling when ambulatory and for comfort, right wrist splint at all times, removesplint 3-4 times/days and move wrist Acute Coronary Syndrome Inclusion Criteria At DC or during hospital stay patient has or had the following: ACS DIAGNOSIS No Discharge Core Measures Meds if any: Prescribed or Continued at Discharge Meds if any: NOT Prescribed or Continued at Discharge Congestive Heart Failure Inclusion Criteria At DC or during hospital stay patient has or had the following: CHF DIAGNOSIS No Discharge Core Measures Meds if any: Prescribed or Continued at Discharge Meds if any: NOT Prescribed or Continued at Discharge Cerebrovascular accident Inclusion Criteria At DC or during hospital stay patient has or had the following: CVA/TIA Diagnosis No Discharge Core Measures Meds if any: Prescribed or Continued at Discharge Meds if any: NOT Prescribed or Continued at Discharge Venous thromboembolism Inclusion Criteria VTE Diagnosis No VTE Type NONE VTE Confirmed by (Test) NONE Discharge Core Measures - Per Current guidelines, there needs to be overlap - treatment for the first 5 days of Warfarin therapy. - If discharged on Warfarin prior to 5 days of - overlap therapy, the patient will need to be - assessed for post discharge needs including - *Post discharge parental anticoagulation - *Warfarin and/or parental anticoagulation education - *Follow up date to check INR post discharge At least 5 days overlap therapy as Inpatient No Meds if any: Prescribed or Continued at Discharge Note: Overlap Therapy is Warfarin and Anticoagulant Meds if any: NOT Prescribed or Continued at Discharge
--- NOTE | 2017-03-24 15:47 | PN- Att Addend ---
Attending Addendum Attending Brief Note Patient is being discharged to home today status post humerus fracture repair. She feels well. I counseled her and her at length regarding alcohol use , regarding transaminitis and I gave them a card showing our primary care clinic number at [address] [facility]. I explained the need to closely follow up with an outpatient PCP regarding the alcohol abuse, transaminitis albeit mild and the episode of hypertension before her surgery.
== END 2017-03-24 12:11 | disposition home health service (06) | DRG 493 ==
LOC: ERH 19:26 → ERHI 22:09 → 2NA 22:09 → ENRESERV 03-22 10:06 → ENTRNSPT 03-22 20:13 → EDTRNSPTSTS 03-22 20:17 → 2NA 03-22 20:24 → CMPTRNSPT 03-22 20:40 → ENTRNSPT 03-23 13:33 → DELTRNSPT 03-23 13:36 → ENPENDDIS 03-24 10:58 → ENTRNSPT 03-24 11:26 → EDTRNSPTSTS 03-24 12:00 → EDTRNSPT 03-24 12:00 → CMPTRNSPT 03-24 12:09 → 2NA 03-24 12:11
PROVIDERS: Physician Assistant Medical; Physician Assistant Surgical
PROC: [UNRECOGNIZED PROCEDURE] (principal; 2017-03-22)
PROC: 0PSF04Z Reposition Right Humeral Shaft with Internal Fixation Device, Open Approach (ICD-10-PCS; principal; 2017-03-22)
DX: S42.201B Unspecified fracture of upper end of right humerus, initial encounter for open fracture (principal); S46.821A Laceration of other muscles, fascia and tendons at shoulder and upper arm level, right arm, initial encounter; D62 Acute posthemorrhagic anemia; F10.20 Alcohol dependence, uncomplicated; G56.31 Lesion of radial nerve, right upper limb; I10 Essential (primary) hypertension; R74.0 Nonspecific elevation of levels of transaminase and lactic acid dehydrogenase [LDH]; Y90.6 Blood alcohol level of 120-199 mg/100 ml; K21.9 Gastro-esophageal reflux disease without esophagitis; W18.30XA Fall on same level, unspecified, initial encounter; Y92.000 Kitchen of unspecified non-institutional (private) residence as the place of occurrence of the external cause; Z87.891 Personal history of nicotine dependence
CPT/HCPCS: 2NAP; ERO; 36415; 71045; 73060-RT; 90714; 93005; 93010; 96372; 96374; 97110-GO; 97165-GO; C1713; G0480; J0131; J0360; J0690; J1170; J1644; J2405; Q2036